=== PATIENT | female | born 1970 | race Caucasian/White ===

== ENCOUNTER 2022-12-08 00:22 | Day surgery (SDC) | payer OTHER, SELFPAY ==
[2022-11-29 10:43] VITALS: BMI 25.8
[2022-12-08 09:56] VITALS: BP 133/86; PULSE 88; RESP 18; TEMP 36.2; O2SAT 100; BMI 24.5
[2022-12-08] MEDS: LACTATED RINGERS 1,000 ML 150 ML IV CONT (10:08)
--- NOTE | 2022-12-08 10:51 | PM.HPGS ---
History of Present Illness History of Present Illness Consent: Risks, benefits, and alternatives have been discussed and questions answered. Patient agrees to proceed with procedure. Chief complaint: hx colon polyps Narrative: Uzma Holguin is a 52 year old female Presents for screening colonoscopy. Patient reports having had a colonoscopy 1 and half years ago that was performed elsewhere. She apparently had multiple colon polyps that were somewhat large. She was told to come back 1 year later. She presents today for follow-up examination. Old records are not immediately available for review. Patient states her bowel habits are normal. Patient denies abdominal pain. She has had no bleeding. Family history is significant both sister and mother have had colon polyps. Review of Systems Review of Systems: Review of systems noncontributory. [facility] Social History Social History Years smoked: 30 Smoking status: Current every day smoker Tobacco type: cigarettes Alcohol intake: current Drinks per week: 25 Alcohol use details: 3-4 drinks daily Substance use: never Substance use type: does not use Living arrangements: with family Spiritual care concerns: No Meds Home Medications and Allergies Allergies Allergy/AdvReac Type Severity Reaction Status Date / Time No Known Allergies Allergy Mild Verified 11/29/22 10:56 Vital Signs Vital Signs - 24 hr 12/08/22 09:56 Temperature 97.1 F L Pulse Rate 88 Respiratory Rate 18 Blood Pressure 133/86 Pulse Oximetry 100 Oxygen Delivery Room Air Exam Narrative: Physical exam reveals patient to be alert. Vital signs stable. HEENT exam is unremarkable. Patient is anicteric. Lungs are clear to auscultation and percussion. Heart is without murmur or extra sounds. Abdomen bowel sounds are present soft nontender with no hepatosplenomegaly. Digital external rectal exam normal. Assessment and Plan Assessment and plan (1) History of colon polyps: Code(s): Z86.010 - Personal history of colonic polyps Status: Acute Assessment and Plan: Patient had colon polyps removed from the colon 1 and half years ago elsewhere. Plan for surveillance colonoscopy at this time. Will need follow-up at intervals in the future as well. (2) Family history of colonic polyps: Code(s): Z83.71 - Family history of colonic polyps Status: Acute Assessment and Plan: Patient's family history is significant both sister and mother have had colon polyps. Plan for follow-up colonoscopy at least every 5 years if not sooner.
--- NOTE | 2022-12-08 10:56 | WPDANESEPPF ---
Anes - Initial Pre Proc Eval Procedure: Operation Date: 12/08/22 11:00 Proposed Procedures p Colonoscopy - Haseeb Mason MD Date/Time: 12/08/22 10:56 Surgeon: Haseeb Mason MD Pre Op Diagnosis: hx colon polyps Patient Data Age: 52 Gender: F Height: 1.63 m Weight: 64.7 kg Last Vital Signs Temp 97.1 F L 12/08/22 09:56 Pulse 88 12/08/22 09:56 Resp 18 12/08/22 09:56 BP 133/86 12/08/22 09:56 Pulse Ox 100 12/08/22 09:56 O2 Del Method Room Air 12/08/22 09:56 Allergies Allergy/AdvReac Type Severity Reaction Status Date / Time No Known Allergies Allergy Mild Verified 11/29/22 10:56 Patient hx anesthesia problems: none Family hx anesthesia problems: none Results Review: All pre-operative results and documents have been reviewed as part of the pre-operative evaluation. [facility] Social History Social History Years smoked: 30 Smoking status: Current every day smoker Tobacco type: cigarettes Alcohol intake: current Drinks per week: 25 Alcohol use details: 3-4 drinks daily Substance use: never Substance use type: does not use Living arrangements: with family Spiritual care concerns: No Anes - Eval Final PreProcedure Day of Procedure 12/08/22 10:56 Patient weight: normal Heart: regular rate and rhythm Lungs: clear to auscultation Airway: Mallampati scale class II Neurological: alert and oriented Last oral intake: >/= 8 hours ASA classification: II Emergent: no Anesthetic plan: proceed Anesthesia type and monitoring: general GIVS and standard monitoring Results Review: All pre-operative results and documents have been reviewed as part of the pre-operative evaluation. Informed Consent: The patient's anesthetic plan and its attendant risks and benefits were discussed with the patient/family/POA. Questions were solicited and answers provided to the satisfaction of the patient/family/POA.
[2022-12-08 11:21] VITALS: BP 104/70; PULSE 87; RESP 25; O2SAT 93
[2022-12-08 11:31] VITALS: BP 111/63; PULSE 87; RESP 25; O2SAT 93
[2022-12-08 11:41] VITALS: BP 113/73; PULSE 87; RESP 22; O2SAT 93
== END 2022-12-08 11:44 | disposition home or self-care (01) ==
PROVIDERS: Visit Provider Internal Medicine Gastroenterology
PROC: 0DJD8ZZ Inspection of Lower Intestinal Tract, Via Natural or Artificial Opening Endoscopic (ICD-10-PCS; CPT 45378; principal; 2022-12-08 11:00)
DX: Z09 Encounter for follow-up examination after completed treatment for conditions other than malignant neoplasm (principal); K64.8 Other hemorrhoids; Z86.010 Personal history of colon polyps; F17.210 Nicotine dependence, cigarettes, uncomplicated; Z83.71 Family history of colonic polyps
CPT/HCPCS: 45378; J2704; J7120